=== PATIENT | female | born 1930 | race Hispanic/Latino ===

== ENCOUNTER 2018-02-04 14:59 | Inpatient (IN) | payer MEDICARE ==
[~2018-02-04] VITALS: Ht 142.2 cm; Wt 34.1 kg
[~2018-02-04 14:59] MED LIST: DIGO62.52 PO; DRON400T2 PO; LEVO50TA11 PO; METO25TA6 PO; OSCD250 PO; WARF-67 PO; WARF1TAB83 PO
[2018-02-04 15:25] LABS: APPEARANCE,URINE Turbid (CLEAR); BILIRUBIN,URINE Negative (NEGATIVE); COLOR,URINE Yellow (YELLOW); GLUCOSE, URINE (UA) Negative (NEGATIVE); KETONES,URINE Negative (NEGATIVE); LEUKOCYTE ESTERASE ,URINE Large (NEGATIVE); NITRATE,URINE Positive (NEGATIVE); OCCULT BLOOD,URINE Moderate (NEGATIVE); PROTEIN,URINE POS 2+ (NEGATIVE); UROBILINOGEN,URINE 0.2 mg/dL (0.2-1.0)
[2018-02-04 15:28] LABS: BASOPHILS % (AUTO) 0.4 % (0.0-5.0); EOSINOPHILS % (AUTO) 0.7 % (0.0-8.0); HEMATOCRIT 31.4 % (36-48); LYMPHOCYTES % (AUTO) 17.5 % (21.0-51.0); MEAN CORPUSCULAR HEMOGLOBIN 31.2 pg (27.0-33.0); MEAN CORPUSCULAR HGB CONC 33.4 g/dL (32.0-36.0); MEAN CORPUSCULAR VOLUME 93.4 fL (79-99); MONOCYTES % (AUTO) 8.5 % (3.0-13.0); NEUTROPHILS % (AUTO) 72.9 % (40.0-77.0); PLATELET COUNT (AUTO) 153 K/uL (130-400); RED BLOOD CELL COUNT(AUTO) 3.36 MIL/uL (4.00-5.50); RED CELL DISTRIBUTION WIDTH 16.3 % (11.0-15.5); WHITE BLOOD COUNT (AUTO) 8.8 K/uL (4.8-10.8)
[2018-02-04] MEDS ORDERED: ACETAMINOPHEN 325 MG TAB ONE ×2 (15:29→19:43)
[2018-02-04 15:36] LABS: INR 2.58 (0.85-1.15); PARTIAL THROMBOPLASTIN TIME 42.6 SEC (26.3-35.5); PROTHROMBIN TIME 26.6 SEC (9.6-11.6)
[2018-02-04 15:39] LABS: CARBON DIOXIDE 26 mmol/L (21-32); CHLORIDE 105 mmol/L (101-111); CREATININE 1.4 mg/dL (0.5-1.5); GLOMERULAR FILTR. RATE CALC 38 mL/min (>60); GLUCOSE,RANDOM 103 mg/dL (70-105); POTASSIUM 4.8 mmol/L (3.5-5.1); SODIUM SERUM 137 mmol/L (136-145); UREA NITROGEN, BLOOD 23 mg/dL (7-18)
[2018-02-04] MEDS ORDERED: MEROPENEM 1 GM VIAL ONE (15:40)
[2018-02-04 15:41] LABS: BACTERIA,URINE Many /HPF (None Seen); RBC,URINE None Seen /HPF (0-1); SQUAMOUS EPITHELIAL CELL,UR None Seen /HPF (0-2); WBC,URINE Full Field /HPF (0-1)
[2018-02-04 15:54] LABS: ALANINE AMINOTRANSFERASE 10 U/L (12-78); ALBUMIN 3.1 g/dL (3.5-5.0); ASPARTATE AMINOTRANSFERASE 18 U/L (10-37); BILIRUBIN,TOTAL 0.3 mg/dL (0.2-1.0); CREATINE KINASE MB < 0.5 ng/mL (0.5-3.6); CREATINE KINASE, TOTAL 35 U/L (21-232); MYOGLOBIN 28 ng/mL (10-92); TOTAL PROTEIN, SERUM 7.7 g/dL (6.0-8.3); TROPONIN I < 0.04 ng/mL (0.00-0.06)
[2018-02-04] MEDS ORDERED: SODIUM CHLORIDE 0.9% 1000ML 1,000 ML IV ONE (16:10)
[2018-02-04 18:27] VITALS: BP 88/42
[2018-02-04 19:45] VITALS: BP 108/47
[2018-02-04] MEDS: SODIUM CHLORIDE 0.9% 1000ML 1,000 ML IV SCH (19:52)
[2018-02-04] MEDS ORDERED: MUPI22OI2 TP (20:00)
[2018-02-04] MEDS ORDERED: MORPHINE SULFATE 4 MG/1ML SYG IVP PRN (20:00)
[2018-02-04] MEDS ORDERED: DRON400T2 PO (20:00)
[2018-02-04] MEDS ORDERED: LACTULOSE 20 GM/30 ML UDCUP PO PRN (20:00)
[2018-02-04] MEDS ORDERED: ACETAMINOPHEN 325 MG TAB PO PRN ×2 (20:00)
[2018-02-04] MEDS ORDERED: HC2530O TP (20:00)
[2018-02-04] MEDS ORDERED: LISI2.5T2 PO (20:00)
[2018-02-04] MEDS ORDERED: METO25TA6 PO (20:00)
[2018-02-04] MEDS ORDERED: CLONIDINE HCL 0.1 MG TABLET PO PRN (20:00)
[2018-02-04] MEDS ORDERED: ONDANSETRON HCL 4 MG/2 ML VIAL IVP PRN (20:00)
[2018-02-04] MEDS ORDERED: WARF-67 PO (20:00)
[2018-02-04] MEDS ORDERED: DIGO125T17 PO (20:00)
[2018-02-04] MEDS ORDERED: LEVO50 PO (20:00)
[2018-02-04] MEDS ORDERED: CALC-190 PO (20:00)
[2018-02-04] MEDS: MEROPENEM 500 MG VIAL IVP SCH (20:54)
[2018-02-04 23:25] VITALS: BP 123/47
[2018-02-05] VITALS (7 sets, daily range): BP systolic 90–129; BP diastolic 41–88
[2018-02-05] MEDS ORDERED: POTASSIUM CHLORIDE 20 MEQ ERTAB PO PRN (01:45)
[2018-02-05] MEDS ORDERED: POTASSIUM CHLORIDE 10% ELIXIR 20 MEQ/15 ML UDCUP PO PRN (01:45)
[2018-02-05] MEDS ORDERED: GLUCAGON 1MG KIT 1 MG ML IM PRN (01:45)
[2018-02-05] MEDS ORDERED: LIDOCAINE HCL-MPF 1% 2ML VIAL IVP PRN (01:45)
[2018-02-05] MEDS ORDERED: POTASSIUM CHLORIDE 20MEQ/100ML 100 ML IV PRN (01:45)
[2018-02-05] MEDS ORDERED: DEXTROSE 50%-WATER 50 ML DISP.SYRIN IV PRN (01:45)
[2018-02-05 04:26] LABS: HEMATOCRIT 25.8 % (36-48); MEAN CORPUSCULAR HEMOGLOBIN 32.8 pg (27.0-33.0); MEAN CORPUSCULAR HGB CONC 35.3 g/dL (32.0-36.0); MEAN CORPUSCULAR VOLUME 92.9 fL (79-99); PLATELET COUNT (AUTO) 117 K/uL (130-400); RED BLOOD CELL COUNT(AUTO) 2.78 MIL/uL (4.00-5.50); RED CELL DISTRIBUTION WIDTH 15.9 % (11.0-15.5); WHITE BLOOD COUNT (AUTO) 4.9 K/uL (4.8-10.8)
[2018-02-05 04:37] LABS: INR 2.44 (0.85-1.15); PROTHROMBIN TIME 25.2 SEC (9.6-11.6)
[2018-02-05 04:56] LABS: DIGOXIN 0.6 ng/mL (0.50-2.00)
[2018-02-05] MEDS: SODIUM CHLORIDE 0.9% 1000ML 1,000 ML IV SCH ×4 (05:53→10:04)
[2018-02-05] MEDS: INSULIN HUMULIN R 100 UNIT/ML 3ML SQ SCH ×4 (06:33→21:00)
[2018-02-05] MEDS ORDERED: DIGOXIN 125 MCG TABLET PO SCH ×2 (07:30→16:00)
[2018-02-05] MEDS: HYDROCORTISONE 2.5% 28GM CREAM TP SCH (09:44)
[2018-02-05] MEDS: MEROPENEM 500 MG VIAL IVP SCH ×3 (09:45→20:55)
[2018-02-05] MEDS: CALCIUM 600 + VITAMIN D 400 TABLET PO SCH (09:46)
[2018-02-05] MEDS: DRONEDARONE HYDROCHLORIDE 400 MG TABLET PO SCH ×2 (09:47→20:55)
[2018-02-05] MEDS: LISINOPRIL 2.5 MG TABLET PO SCH ×2 (09:47→09:49)
[2018-02-05] MEDS: METOPROLOL TARTRATE 25 MG TAB PO SCH ×2 (09:47→20:56)
[2018-02-05] MEDS: LEVOTHYROXINE 50 MCG TABLET PO SCH (09:51)
[2018-02-05] MEDS: WARFARIN SODIUM 2 MG TAB PO SCH (16:35)
[2018-02-06 03:45] VITALS: BP 109/46
[2018-02-06 04:29] LABS: HEMATOCRIT 27.4 % (36-48); MEAN CORPUSCULAR HEMOGLOBIN 31.4 pg (27.0-33.0); MEAN CORPUSCULAR VOLUME 92.4 fL (79-99); PLATELET COUNT (AUTO) 129 K/uL (130-400); RED BLOOD CELL COUNT(AUTO) 2.96 MIL/uL (4.00-5.50); RED CELL DISTRIBUTION WIDTH 16.4 % (11.0-15.5); WHITE BLOOD COUNT (AUTO) 3.2 K/uL (4.8-10.8)
[2018-02-06 04:39] LABS: CREATININE 0.9 mg/dL (0.5-1.5); POTASSIUM 3.6 mmol/L (3.5-5.1)
[2018-02-06] MEDS: INSULIN HUMULIN R 100 UNIT/ML 3ML SQ SCH ×4 (06:14→20:28)
[2018-02-06] MEDS: LEVOTHYROXINE 50 MCG TABLET PO SCH (06:33)
[2018-02-06 08:00] VITALS: BP 129/55
[2018-02-06] MEDS: HYDROCORTISONE 2.5% 28GM CREAM TP SCH (09:00)
[2018-02-06] MEDS: CALCIUM 600 + VITAMIN D 400 TABLET PO SCH (09:47)
[2018-02-06] MEDS: MEROPENEM 500 MG VIAL IVP SCH ×3 (09:47→20:33)
[2018-02-06] MEDS: LISINOPRIL 2.5 MG TABLET PO SCH (09:47)
[2018-02-06] MEDS: DRONEDARONE HYDROCHLORIDE 400 MG TABLET PO SCH ×2 (09:47→20:24)
[2018-02-06] MEDS: METOPROLOL TARTRATE 25 MG TAB PO SCH ×2 (09:47→20:32)
[2018-02-06 12:00] VITALS: BP 127/57
[2018-02-06 16:00] VITALS: BP 106/52
[2018-02-06] MEDS: WARFARIN SODIUM 2 MG TAB PO SCH (17:19)
[2018-02-06 19:30] VITALS: BP 97/51
[2018-02-06 23:25] VITALS: BP 107/49
[2018-02-07 03:41] LABS: MEAN CORPUSCULAR HEMOGLOBIN 32.7 pg (27.0-33.0); MEAN CORPUSCULAR HGB CONC 35.6 g/dL (32.0-36.0); MEAN CORPUSCULAR VOLUME 91.8 fL (79-99); NUCLEATED RED BLOOD CELLS 0.1 % (0.0-0.19); PLATELET COUNT (AUTO) 134 K/uL (130-400); RED BLOOD CELL COUNT(AUTO) 3.05 MIL/uL (4.00-5.50); RED CELL DISTRIBUTION WIDTH 16.1 % (11.0-15.5); WHITE BLOOD COUNT (AUTO) 3.9 K/uL (4.8-10.8)
[2018-02-07 03:46] LABS: INR 2.44 (0.85-1.15); PARTIAL THROMBOPLASTIN TIME 44.4 SEC (26.3-35.5); PROTHROMBIN TIME 25.2 SEC (9.6-11.6)
[2018-02-07 03:47] VITALS: BP 124/60
[2018-02-07 03:47] LABS: CREATININE 0.9 mg/dL (0.5-1.5)
[2018-02-07] MEDS: INSULIN HUMULIN R 100 UNIT/ML 3ML SQ SCH (05:57)
[2018-02-07] MEDS: LEVOTHYROXINE 50 MCG TABLET PO SCH (06:35)
[2018-02-07] MEDS ORDERED: LEVO250T2 PO (07:42)
[2018-02-07 08:00] VITALS: BP 112/52
[2018-02-07] MEDS: LISINOPRIL 2.5 MG TABLET PO SCH (08:27)
[2018-02-07] MEDS: CALCIUM 600 + VITAMIN D 400 TABLET PO SCH (08:27)
[2018-02-07] MEDS: MEROPENEM 500 MG VIAL IVP SCH (08:27)
[2018-02-07] MEDS: METOPROLOL TARTRATE 25 MG TAB PO SCH (08:27)
== END 2018-02-07 10:00 | disposition home or self-care (01) | DRG 872 ==
LOC: EDH 14:59 → OBSVTOIN 16:44 → EDHIP 16:44 → 3AH 18:11
PROVIDERS: ADMIT Family Medicine; ATTEND Family Medicine
DX: A41.9 Sepsis, unspecified organism (principal); E44.0 Moderate protein-calorie malnutrition; D68.59 Other primary thrombophilia; D69.6 Thrombocytopenia, unspecified; I11.0 Hypertensive heart disease with heart failure; I48.91 Unspecified atrial fibrillation; I50.9 Heart failure, unspecified; E03.9 Hypothyroidism, unspecified; F32.9 Major depressive disorder, single episode, unspecified; N39.0 Urinary tract infection, site not specified; Z68.1 Body mass index [BMI] 19.9 or less, adult; Z96.1 Presence of intraocular lens; Z16.12 Extended spectrum beta lactamase (ESBL) resistance; K72.90 Hepatic failure, unspecified without coma; M81.0 Age-related osteoporosis without current pathological fracture; B96.4 Proteus (mirabilis) (morganii) as the cause of diseases classified elsewhere; Z87.440 Personal history of urinary (tract) infections; Z95.0 Presence of cardiac pacemaker; Z95.2 Presence of prosthetic heart valve; Z88.8 Allergy status to other drugs, medicaments and biological substances; Z79.01 Long term (current) use of anticoagulants; Z88.2 Allergy status to sulfonamides; Z90.49 Acquired absence of other specified parts of digestive tract; Z98.49 Cataract extraction status, unspecified eye
CPT/HCPCS: 36415; 71045; 80048; 80053; 80162; 81001; 82550; 82553; 82948; 83605; 83874; 84484; 85025; 85027; 85610; 85730; 87040; 87088; 87186; 87804; 93005; A4218; J2185; J7030

== ENCOUNTER 2018-03-27 00:25 | Inpatient (IN) | payer MEDICARE ==
[2018-03-26] MEDS: METOPROLOL TARTRATE 25 MG TAB PO SCH (21:10)
[~2018-03-27] VITALS: Ht 142.2 cm; Wt 29.0 kg
[~2018-03-27 00:25] MED LIST changes: +CALC-190 PO; +DIGO125T17 PO; -DIGO62.52 PO; +HC2530O TP; +LEVO250T2 PO; +LEVO50 PO; -LEVO50TA11 PO; +LISI2.5T2 PO; +MUPI22OI2 TP; -OSCD250 PO; -WARF1TAB83 PO
[2018-03-27 01:19] LABS: BASOPHILS % (AUTO) 0.5 % (0.0-5.0); EOSINOPHILS % (AUTO) 2.1 % (0.0-8.0); HEMATOCRIT 26.2 % (36-48); LYMPHOCYTES % (AUTO) 15.7 % (21.0-51.0); MEAN CORPUSCULAR HEMOGLOBIN 31.1 pg (27.0-33.0); MEAN CORPUSCULAR HGB CONC 34.2 g/dL (32.0-36.0); MEAN CORPUSCULAR VOLUME 90.8 fL (79-99); MONOCYTES % (AUTO) 9.1 % (3.0-13.0); NEUTROPHILS % (AUTO) 72.6 % (40.0-77.0); NUCLEATED RED BLOOD CELLS 0.1 % (0.0-0.19); PLATELET COUNT (AUTO) 179 K/uL (130-400); RED BLOOD CELL COUNT(AUTO) 2.89 MIL/uL (4.00-5.50); RED CELL DISTRIBUTION WIDTH 16.1 % (11.0-15.5); WHITE BLOOD COUNT (AUTO) 5.8 K/uL (4.8-10.8)
[2018-03-27 01:25] LABS: CREATININE 1.1 mg/dL (0.5-1.5); POTASSIUM 3.9 mmol/L (3.5-5.1)
[2018-03-27 01:27] LABS: PARTIAL THROMBOPLASTIN TIME 45.5 SEC (26.3-35.5)
[2018-03-27 01:29] LABS: BILIRUBIN,TOTAL 0.2 mg/dL (0.2-1.0); TOTAL PROTEIN, SERUM 6.8 g/dL (6.0-8.3)
[2018-03-27 01:31] LABS: INR 3.99 (0.85-1.15); PROTHROMBIN TIME 40.8 SEC (9.6-11.6)
[2018-03-27 03:18] LABS: APPEARANCE,URINE Clear (CLEAR); BILIRUBIN,URINE Negative (NEGATIVE); COLOR,URINE Yellow (YELLOW); GLUCOSE, URINE (UA) Negative (NEGATIVE); KETONES,URINE Negative (NEGATIVE); LEUKOCYTE ESTERASE ,URINE Small (NEGATIVE); NITRATE,URINE Negative (NEGATIVE); OCCULT BLOOD,URINE Moderate (NEGATIVE); PH,URINE 6.5 (5.0-8.0); PROTEIN,URINE Negative (NEGATIVE); UROBILINOGEN,URINE 0.2 mg/dL (0.2-1.0)
[2018-03-27 03:33] LABS: BACTERIA,URINE Few /HPF (None Seen); MUCUS,URINE Moderate LPF (None Seen); RENAL EPITHELIAL CELLS,URINE Few /HPF (None Seen); SQUAMOUS EPITHELIAL CELL,UR Few /HPF (0-2)
[2018-03-27] MEDS ORDERED: CEFTRIAXONE SODIUM 1 GM ONE (03:40)
[2018-03-27] MEDS ORDERED: SODIUM CHLORIDE 0.9% 0 ML IV ONE (03:41)
[2018-03-27] MEDS: CEFTRIAXONE SODIUM 1 GM IVP SCH (04:00)
[2018-03-27 04:30] VITALS: BP 116/54
[2018-03-27] MEDS ORDERED: PHYTONADIONE 10 MG/1 ML AMP SQ SCH (04:30)
[2018-03-27] MEDS: LEVOTHYROXINE 50 MCG TABLET PO SCH (07:02)
[2018-03-27] MEDS: DOCUSATE SODIUM 100 MG CAP PO SCH (07:04)
[2018-03-27 08:00] VITALS: BP 144/54
[2018-03-27] MEDS ORDERED: LISINOPRIL 5 MG TABLET PO SCH (09:00)
[2018-03-27 10:05] LABS: MEAN CORPUSCULAR HEMOGLOBIN 30.1 pg (27.0-33.0); MEAN CORPUSCULAR HGB CONC 33.4 g/dL (32.0-36.0); MEAN CORPUSCULAR VOLUME 90.1 fL (79-99); PLATELET COUNT (AUTO) 170 K/uL (130-400); RED BLOOD CELL COUNT(AUTO) 2.89 MIL/uL (4.00-5.50); RED CELL DISTRIBUTION WIDTH 16.2 % (11.0-15.5); WHITE BLOOD COUNT (AUTO) 5.4 K/uL (4.8-10.8)
[2018-03-27 10:16] LABS: POTASSIUM 3.7 mmol/L (3.5-5.1)
[2018-03-27 10:17] LABS: INR 3.32 (0.85-1.15)
[2018-03-27] MEDS: FAMOTIDINE 20MG TAB 20 MG TAB PO SCH ×2 (10:18→21:10)
[2018-03-27] MEDS: METOPROLOL TARTRATE 25 MG TAB PO SCH (10:19)
[2018-03-27] MEDS: LISINOPRIL 5 MG TABLET PO SCH (10:19)
[2018-03-27] MEDS: FERROUS SULFATE 325 MG TABLET.DR PO SCH ×2 (10:19→21:10)
[2018-03-27 12:00] VITALS: BP 135/56
[2018-03-27] MEDS ORDERED: ONDANSETRON HCL 4 MG/2 ML VIAL IVP PRN (14:00)
[2018-03-27] MEDS: SODIUM CHLORIDE 0.9% 1000ML 1,000 ML IV SCH (14:26)
[2018-03-27 19:45] VITALS: BP 116/47
[2018-03-27] MEDS: ACETAMINOPHEN 325 MG TAB PO PRN (22:05)
[2018-03-27 23:30] VITALS: BP 112/46
[2018-03-28] MEDS: CEFTRIAXONE SODIUM 1 GM IVP SCH (03:09)
[2018-03-28 04:31] VITALS: BP 140/60
[2018-03-28] MEDS: DOCUSATE SODIUM 100 MG CAP PO SCH (05:44)
[2018-03-28] MEDS: LEVOTHYROXINE 50 MCG TABLET PO SCH (05:44)
[2018-03-28 08:00] VITALS: BP 120/50
[2018-03-28] MEDS: LISINOPRIL 5 MG TABLET PO SCH (11:53)
[2018-03-28] MEDS: FAMOTIDINE 20MG TAB 20 MG TAB PO SCH (11:53)
[2018-03-28] MEDS: FERROUS SULFATE 325 MG TABLET.DR PO SCH (11:53)
[2018-03-28] MEDS: METOPROLOL TARTRATE 25 MG TAB PO SCH (11:55)
[2018-03-28] MEDS: SODIUM CHLORIDE 0.9% 1000ML 1,000 ML IV SCH (11:55)
[2018-03-28 12:00] VITALS: BP 117/62
[2018-03-28 16:00] VITALS: BP 112/50
[2018-03-28] MEDS: ACETAMINOPHEN 325 MG TAB PO PRN (16:29)
== END 2018-03-28 17:45 | disposition home or self-care (01) | DRG 689 ==
LOC: EDH 00:25 → EDHIP 03:40 → OBSVTOIN 03:40 → 3DH 04:04
PROVIDERS: ADMIT Family Medicine; ATTEND Family Medicine
DX: N39.0 Urinary tract infection, site not specified (principal); G93.41 Metabolic encephalopathy; R64 Cachexia; R79.1 Abnormal coagulation profile; D64.9 Anemia, unspecified; F03.90 Unspecified dementia, unspecified severity, without behavioral disturbance, psychotic disturbance, mood disturbance, and anxiety; F32.9 Major depressive disorder, single episode, unspecified; E03.9 Hypothyroidism, unspecified; M81.0 Age-related osteoporosis without current pathological fracture; Z88.1 Allergy status to other antibiotic agents; Z88.0 Allergy status to penicillin; Z88.8 Allergy status to other drugs, medicaments and biological substances
CPT/HCPCS: 36415; 70450; 71045; 80048; 80053; 81001; 82948; 84484; 85025; 85027; 85610; 85730; 87040; 87088; 87186; 93005; 99291; J0696; J3430

== ENCOUNTER 2018-08-05 09:02 | Emergency (ER) | payer MEDICARE ==
[~2018-08-05 09:02] MED LIST changes: +CALC-1009 PO; -CALC-190 PO; -HC2530O TP; -LEVO250T2 PO; -MUPI22OI2 TP
[2018-08-05 09:53] LABS: BASOPHILS % (AUTO) 0.5 % (0.0-5.0); EOSINOPHILS % (AUTO) 1.6 % (0.0-8.0); HEMATOCRIT 28.6 % (36-48); MEAN CORPUSCULAR HEMOGLOBIN 29.3 pg (27.0-33.0); MEAN CORPUSCULAR HGB CONC 32.8 g/dL (32.0-36.0); MEAN CORPUSCULAR VOLUME 89.2 fL (79-99); MONOCYTES % (AUTO) 7.5 % (3.0-13.0); NEUTROPHILS % (AUTO) 70.4 % (40.0-77.0); PLATELET COUNT (AUTO) 113 K/uL (130-400); WHITE BLOOD COUNT (AUTO) 5.6 K/uL (4.8-10.8)
[2018-08-05 09:58] LABS: CREATININE 0.9 mg/dL (0.5-1.5); POTASSIUM 4.8 mmol/L (3.5-5.1)
[2018-08-05 10:19] LABS: INR 1.38 (0.85-1.15); PARTIAL THROMBOPLASTIN TIME 35.9 SEC (26.3-35.5); PROTHROMBIN TIME 14.4 SEC (9.6-11.6)
[2018-08-05] MEDS ORDERED: LIDOCAINE HCL 1% 20 ML VIAL ONE (10:23)
[2018-08-05] MEDS ORDERED: TETANUS/DIPHTHERIA TOXOID [ADULT] 0.5 ML VIAL IM ONE (11:31)
== END 2018-08-05 11:50 | disposition home or self-care (01) ==
LOC: EDH 09:02
DX: S01.01XA Laceration without foreign body of scalp, initial encounter (principal); S02.5XXA Fracture of tooth (traumatic), initial encounter for closed fracture; I10 Essential (primary) hypertension; F32.9 Major depressive disorder, single episode, unspecified; E07.9 Disorder of thyroid, unspecified; Z88.2 Allergy status to sulfonamides; Z88.1 Allergy status to other antibiotic agents; Z79.01 Long term (current) use of anticoagulants; W22.01XA Walked into wall, initial encounter; Y93.01 Activity, walking, marching and hiking; Y92.89 Other specified places as the place of occurrence of the external cause; Y99.8 Other external cause status
CPT/HCPCS: 12001; 36415; 70450; 70486; 72125; 80048; 84484; 85025; 85610; 85730; 90471; 90714; 93005

== ENCOUNTER 2018-11-03 16:54 | Emergency (ER) | payer MEDICARE ==
[2018-11-03] MEDS ORDERED: SODIUM CHLORIDE 0.9% 1000ML 1,000 ML IV ONE (17:12)
[2018-11-03] MEDS ORDERED: MORPHINE SULFATE 4 MG/1ML SYG ONE (17:12)
[2018-11-03] MEDS ORDERED: ONDANSETRON HCL 4 MG/2 ML VIAL ONE (17:12)
[2018-11-03 17:29] LABS: ALBUMIN 2.5 g/dL (3.5-5.0); BILIRUBIN,TOTAL 0.6 mg/dL (0.2-1.0); TOTAL PROTEIN, SERUM 6.9 g/dL (6.0-8.3)
[2018-11-03 17:36] LABS: BASOPHILS % (AUTO) 0.2 % (0.0-5.0); EOSINOPHILS % (AUTO) 0.1 % (0.0-8.0); HEMATOCRIT 31.8 % (36-48); LYMPHOCYTES % (AUTO) 9.6 % (21.0-51.0); MEAN CORPUSCULAR HEMOGLOBIN 27.8 pg (27.0-33.0); MEAN CORPUSCULAR HGB CONC 31.4 g/dL (32.0-36.0); MEAN CORPUSCULAR VOLUME 88.6 fL (79-99); MONOCYTES % (AUTO) 4.3 % (3.0-13.0); NEUTROPHILS % (AUTO) 85.8 % (40.0-77.0); PLATELET COUNT (AUTO) 68 K/uL (130-400); RED BLOOD CELL COUNT(AUTO) 3.59 MIL/uL (4.00-5.50); RED CELL DISTRIBUTION WIDTH 21.4 % (11.0-15.5); WHITE BLOOD COUNT (AUTO) 11.1 K/uL (4.8-10.8)
[2018-11-03] MEDS ORDERED: POTASSIUM CHLORIDE 20 MEQ ERTAB PO ONE (19:39)
[2018-11-03] MEDS ORDERED: LEVOFLOXACIN 500 MG TABLET ONE (20:28)
[2018-11-06] MEDS ORDERED: APIX2.5T PO (17:37)
[2018-11-06] MEDS ORDERED: OMEP40CA37 PO (17:37)
[2018-11-06] MEDS ORDERED: ONDA4SOL2 PO (17:37)
[2018-11-06] MEDS ORDERED: CIPR-278 PO (17:37)
[2018-11-06] MEDS ORDERED: ACET1TAB25 PO (17:37)
== END 2018-11-03 20:45 | disposition home or self-care (01) ==
LOC: EDH 16:54
DX: R10.84 Generalized abdominal pain (principal); R19.7 Diarrhea, unspecified; R11.2 Nausea with vomiting, unspecified; F32.9 Major depressive disorder, single episode, unspecified; I10 Essential (primary) hypertension; M81.0 Age-related osteoporosis without current pathological fracture; E07.9 Disorder of thyroid, unspecified; Z87.891 Personal history of nicotine dependence; Z88.2 Allergy status to sulfonamides; Z88.1 Allergy status to other antibiotic agents; Z88.8 Allergy status to other drugs, medicaments and biological substances
CPT/HCPCS: 36415; 74176; 80053; 83690; 84484; 85025; 93005; 96374; 96375; 99284; J2270; J2405; J7030